=== PATIENT | female | born 1980 | race Caucasian/White ===

== ENCOUNTER 2017-02-23 20:56 | Emergency (ER) | payer MEDICAID ==
[~2017-02-23] VITALS: Ht 160 cm; Wt 74.8 kg
[~2017-02-23 20:56] MED LIST: MULT1CAP1 PO
[2017-02-23 21:08] VITALS: BP 120/78
--- NOTE | 2017-02-23 21:56 | NUR ---
Pt taken to bed 10.
--- NOTE | 2017-02-23 22:02 | NUR ---
36/F c/o generalized body aches, headache and right ear pain starting approxiately 1300 today. Denies fever, denies any N/V/D at this time. Pt c/o fatigue and lethary. AOX4, clear speech. Denies cough or SOB. 6/10 pain for body and headache. Pt took Tylenol prior to arrival with no relief. Comfort needs met at this time. Water provided. Family at bedside.
--- NOTE | 2017-02-23 22:12 | NUR ---
Patient being evaluated by Dr. Toussaint at bedside.
--- NOTE | 2017-02-23 22:15 | NUR ---
Influenza swab collected and sent to lab.
[2017-02-23] MEDS ORDERED: KETOROLAC 60 MG/2 ML VIAL IM ONE (22:20)
[2017-02-23] MEDS ORDERED: ACETAMIN/CODEINE 120/12MG-5ML 5 ML UDC PO ONE (22:20)
[2017-02-23 23:26] VITALS: BP 100/53
--- NOTE | 2017-02-23 23:26 | NUR ---
Patient discharged with v/s stable. Written and verbal after care instructions given and explained. Patient alert, oriented and verbalized understanding of instructions. Ambulatory with steady gait. All questions addressed prior to discharge. ID band removed. Patient advised to follow up with PMD. Rx of Tylenol with Codeine #3 and Naprosy 500mg given. Patient educated on indication of medication including possible reaction and side effects. Opportunity to ask questions provided and answered.
== END 2017-02-23 23:26 | disposition home or self-care (01) ==
LOC: MED 20:56
DX: J06.9 Acute upper respiratory infection, unspecified (principal); M79.1 Myalgia; B34.9 Viral infection, unspecified; E11.9 Type 2 diabetes mellitus without complications; Z90.89 Acquired absence of other organs
CPT/HCPCS: 36415; 82948; 87804; 96372; 99284; J1885